=== PATIENT | male | born 1985 | race Caucasian/White ===

== ENCOUNTER 2022-01-18 18:02 | Emergency (ER) | payer OTHER ==
[2022-01-18] MEDS ORDERED: NORCO 5-325 TA1 EACH PO (20:04)
== END 2022-01-18 21:10 | disposition home or self-care (01) ==
LOC: FER 18:02
DX: S62.306A Unspecified fracture of fifth metacarpal bone, right hand, initial encounter for closed fracture (principal); W22.8XXA Striking against or struck by other objects, initial encounter; Y92.009 Unspecified place in unspecified non-institutional (private) residence as the place of occurrence of the external cause
CPT/HCPCS: 73130